=== PATIENT | female | born 1945 | race Caucasian/White ===

== ENCOUNTER → 2016-09-09 | Outpatient (CLI) | payer MEDICARE, BC ==
[~2016-09-09] MED LIST: ASPIRINEC; CLARITIN10 M2 PO; DICLOFENAC; ESTRATEST; FLEXERIL PO; GARLIC; LIPITOR; LOPRESSOR PO; METOPROLOL TART25 MG PO; MULTIPLE VITAMI1 T11; NEURONTIN PO; NEURONTIN600 MG PO; OMEPRAZOLE20 M2 PO; SINGULAIR; TUMS; VIT E PO; VITAMIN D1000 UNI2 PO; VOLTAREN75 MG; WELLBUTRIN PO; ZANTAC; ZANTAC150 MG PO; ZOCOR20 MG; ZYRTEC PO
--- NOTE | ~2016-09-09 | NM19 ---
[facility] A Service of [facility] & [facility] RADIOLOGY TEXT RESULTS PATIENT: CARLOS AGUERO LOCATION: [facility] : 49 UNIT #: [id number] AGE: [address]: VIRGINIA VAZQUEZ APRN SEX: F ORDER DR: [id number] [facility] [address] [place], [place] [address] [id number] O MR#: [id number] Acc #: [id number] NAME: CARLOS AGUERO. : 1945 SEX: F STUDY DATE/TIME: 09/09/2016 8:33 UNIT: [facility] ROOM: STUDY DESCRIPTION: DE Gastric Emptying Study Attending Physician: Virginia Vazquez Aprn Referring Physician: Virginia Vazquez Aprn Ordering Physician: Virginia Vazquez Aprn Primary Care Physician: Nae Vazquez M.D. MEDICAL IMAGING REPORT This report is preliminary unless electronic signature is present EXAM Gastric emptying scan, 09/09/16. HISTORY Abdominal bloating, epigastric abdominal pain, acid reflux and nausea for 2 years. FINDINGS The patient ingested 593 mcCi of technetium 99m tagged sulfur colloid in eggs. Images of the upper abdomen were obtained for 4 hours. After 1 hour the stomach was 34% empty and after 2 hours the stomach was 81% empty. After 4 hours the stomach was 99% empty. Normal range is greater than 60% empty after 2 hours of imaging and greater than 90% empty after 4 hours of imaging. IMPRESSION Normal gastric emptying after 2 and 4 hours of imaging. Dictated by... Lane Tamez M.D. THIS IS AN ELECTRONICALLY VERIFIED REPORT Lane Tamez M.D. at 09/10/2016 8:10 AM Jimmie TD: 09/09/2016 16:06 JOB #: [id number] MEDICAL IMAGING REPORT Page 1 of 1 COPY
== END | disposition home or self-care (01) ==
LOC: CNUC 08:02
DX: R10.13 Epigastric pain (principal); R14.0 Abdominal distension (gaseous)
CPT/HCPCS: 78264; A9541